=== PATIENT | female | born 1955 | race Caucasian/White ===

== ENCOUNTER → 2017-04-09 | Outpatient (CLI) | payer BC ==
[~2017-04-09] MED LIST: BIFI4CAP PO; CETI-158 PO; CHOL5000 PO; ESTR8.1S2 NS; FLUT9.9S NS; GLUC-120 PO; OMEG1CAP39 PO; OMEP-110 PO; PROG100C4 PO; TURM500C7 PO
== END | disposition home or self-care (01) ==
LOC: STAR 10:18
PROVIDERS: ATTEND Orthopaedic Surgery
DX: Z01.818 Encounter for other preprocedural examination (principal); M20.21 Hallux rigidus, right foot; M20.11 Hallux valgus (acquired), right foot
CPT/HCPCS: 93005

== ENCOUNTER 2017-04-17 09:39 | Day surgery (SDC) | payer BC ==
[~2017-04-17] VITALS: Ht 165.1 cm; Wt 68.5 kg
[2017-04-17] MEDS ORDERED: BUPIVACAINE/PF 0.5% ONE ×2 (10:40→11:08)
[2017-04-17] MEDS ORDERED: LIDOCAINE/PF 1%, 30ML ONE (10:40)
[2017-04-17 10:55] VITALS: BP 156/90
[2017-04-17] MEDS ORDERED: LIDOCAINE 1%, 2ML ONE (11:02)
[2017-04-17] MEDS ORDERED: FENTANYL PF 250 MCG/5ML ONE (11:13)
[2017-04-17] MEDS ORDERED: MIDAZOLAM 1 MG/ML, 2ML ONE (11:14)
[2017-04-17] MEDS ORDERED: LACTATED RINGERS 1,000 ML IV SCH (11:17)
[2017-04-17] MEDS ORDERED: SCOPOLAMINE PATCH, 1.5MG PATCH.TD72 TD ONE (11:23)
[2017-04-17] MEDS ORDERED: LIDOCAINE 1%, 2ML SQ PRN (11:30)
[2017-04-17] MEDS ORDERED: PROPOFOL 10 MG/ML, 50ML ONE (11:53)
[2017-04-17] MEDS ORDERED: PROPOFOL 10 MG/ML, 20ML ONE (11:53)
[2017-04-17] MEDS ORDERED: ONDANSETRON 2MG/ML, 2ML ONE (11:53)
[2017-04-17] MEDS ORDERED: CEFAZOLIN 1,000 MG ONE (11:53)
[2017-04-17] MEDS ORDERED: MEPERIDINE/PF 25MG/0.5ML IVPush PRN (13:00)
[2017-04-17] MEDS ORDERED: hydrALAzine 20 MG/ML, 1ML IV PRN (13:00)
[2017-04-17] MEDS ORDERED: ONDANSETRON 2MG/ML, 2ML IVPush PRN (13:00)
[2017-04-17] MEDS ORDERED: LABETALOL 5MG/ML, 20ML IV PRN (13:00)
[2017-04-17] MEDS ORDERED: EPHEDRINE 50 MG/ML, 1ML IVPush PRN (13:00)
[2017-04-17] MEDS ORDERED: OXYcodone 5 MG/5 ML ORAL.SOL UDC PO PRN (13:00)
[2017-04-17] MEDS ORDERED: ALBUTEROL SULFATE 2.5 MG/3 ML NPPB PRN (13:00)
[2017-04-17] MEDS ORDERED: ACETAMINOPHEN 325 MG TABLET PO PRN (13:00)
[2017-04-17] MEDS ORDERED: HYDROmorphone 1 MG/ML, 1ML IV PRN (13:00)
[2017-04-17] MEDS ORDERED: MIDAZOLAM 1 MG/ML, 2ML IV PRN (13:00)
[2017-04-17] MEDS ORDERED: METOPROLOL 1 MG/ML, 5ML IV PRN (13:00)
[2017-04-17] MEDS ORDERED: PROMETHAZINE 25 MG/ML, 1ML IV PRN (13:00)
[2017-04-17] MEDS ORDERED: MEPERIDINE/PF 25MG/0.5ML ONE (13:17)
== END 2017-04-17 15:15 | disposition home or self-care (01) ==
LOC: OUT 09:39
PROVIDERS: ATTEND Orthopaedic Surgery
DX: M20.11 Hallux valgus (acquired), right foot (principal); M21.621 Bunionette of right foot; Z87.39 Personal history of other diseases of the musculoskeletal system and connective tissue; K21.9 Gastro-esophageal reflux disease without esophagitis; J45.909 Unspecified asthma, uncomplicated; Z98.890 Other specified postprocedural states
CPT/HCPCS: 28308; 28750; 73660; 76000; C1713; C1769; J0690; J2175; J2250; J2405; J2704; J3010; J3490; J7120; J0360